=== PATIENT | male | born 1990 | race Caucasian/White ===

== ENCOUNTER 2017-02-04 16:19 | Emergency (ER) | payer SELFPAY ==
[2017-02-04] MEDS ORDERED: PENICILLIN V POTASSIUM 250 MG TAB PO ONE (16:34)
--- NOTE | 2017-02-04 16:42 | Emergency Department Record ---
History of Present Illness - General Chief complaint: Dental Stated complaint: TOOTH PAIN Time Seen by Provider: 02/04/17 16:20 Source: Patient Mode of Arrival: Ambulatory Limitations: No limitations - History of Present Illness Initial comments: 26 yo male presents with right lower jaw pain over the last one day. He has some swelling and feeling of pus inside the area. He has some chronic decay. No fever. No facial swelling but he has some pain in the face. MD complaint: Tooth pain Onset/Timin -: Days(s) Location: Tooth # Severity: Severe Severity scale (1-10): 10 Quality: Aching Consistency: Constant Improves with: None Worsens with: None Context- Dental: History of dental caries Context- Ear: Other (Recent fall with broken arm) Associated Symptoms: Toothache - Related Data Home Medications Medication Instructions Recorded Confirmed Last Taken Hydrocodone/Acetaminophen [Dow 1 each PO ASDIR 02/04/17 02/04/17 Unknown 5-325 Tablet] Previous Rx's Medication Instructions Recorded Hydrocodone/Acetaminophen [Dow 1 each PO Q6H PRN #15 tablet 02/04/17 5-325 Tablet] Penicillin V Potassium 500 mg PO Q6H #40 tab 02/04/17 Allergies Allergy/AdvReac Type Severity Reaction Status Date / Time No Known Drug Allergies Allergy Verified 02/04/17 16:27 Travel Screening - Travel/Exposure Within Last 30 Days Have you traveled within the last 30 days?: No Review of Systems Constitutional: Denies: Chills, Fever, Malaise, Weakness Eyes: Denies: Eye discharge, Eye pain, Photophobia, Vision change ENT: Reports: As per HPI, Dental pain. Denies: Congestion, Throat pain Respiratory: Denies: Cough, Dyspnea Cardiovascular: Denies: Chest pain, Palpitations, Syncope Endocrine: Denies: Fatigue Gastrointestinal: Denies: Abdominal pain, Diarrhea, Nausea, Vomiting Genitourinary: Denies: Dysuria, Frequency, Hematuria Musculoskeletal: Reports: As per HPI (recent fall with broken arm), Arthralgia. Denies: Back pain, Joint swelling, Myalgia, Neck pain Skin: Denies: Bruising, Change in color Neurological: Denies: Headache Psychiatric: Denies: Anxiety Hematological/Lymphatic: Denies: Blood Clots, Easy bleeding, Easy bruising, Swollen glands Past Medical History - SOCIAL HISTORY Smoking Status: Current every day smoker Alcohol Use: None Drug Use: None - RESPIRATORY Hx Respiratory Disorders: No - CARDIOVASCULAR Hx Cardio Disorders: No - NEURO Hx Neuro Disorders: No - GI Hx GI Disorders: No - Hx Genitourinary Disorders: No - ENDOCRINE Hx Endocrine Disorders: No - MUSCULOSKELETAL Hx Musculoskeletal Disorders: No - PSYCH Hx Psych Problems: No - HEMATOLOGY/ONCOLOGY Hx Hematology/Oncology Disorders: No Family Medical History Any Significant Family History?: No Physical Exam - General General Appearance: Alert, Oriented x3, Cooperative, No acute distress Limitations: No limitations - Head Head exam: Atraumatic, Normocephalic, Normal inspection - Eye Eye exam: Normal appearance. negative: Conjunctival injection, Periorbital swelling, Periorbital tenderness - ENT ENT exam: Mucous membranes moist. negative: Normal orophraynx Ear exam: Normal external inspection Nasal Exam: Normal inspection Mouth exam: Normal external inspection Teeth exam: Dental caries, Dental tenderness # (29), Fractured tooth # (29), Gingival enlargement (29), Other (swelling around #29 with fluctuance). negative: Normal inspection Throat exam: Normal inspection. negative: Tonsillar erythema, Tonsillar exudate - Neck Neck exam: Normal inspection, Full ROM, Other (supple soft, non tender without swelling). negative: Lymphadenopathy, Tenderness, Thyromegaly - Respiratory Respiratory exam: Normal lung sounds bilaterally. negative: Respiratory distress - Cardiovascular Cardiovascular Exam: Regular rate, Normal rhythm, Normal heart sounds - GI/Abdominal GI/Abdominal exam: Soft - Rectal Rectal exam: Deferred - exam: Deferred - Extremities Extremities exam: Normal inspection, Full ROM, Normal capillary refill. negative: Tenderness - Back Back exam: Reports: Normal inspection, Full ROM. Denies: Muscle spasm, Rash noted, Tenderness - Neurological Neurological exam: Alert, Normal gait, Oriented X3 - Psychiatric Psychiatric exam: Normal affect, Normal mood. negative: Agitated, Anxious - Skin Skin exam: Dry, Intact, Normal color, Warm Course Vital Signs 02/04/17 16:24 Temperature 99.3 F Pulse Rate 61 Respiratory 20 Rate Blood Pressure 120/66 Pulse Ox 98 - Reevaluation(s) Reevaluation #1: The patient has a visible small abscess at 29-30 area I discussed the options of antibiotics alone or I and D He agreed to I and D Lidocaine with Epi 1% 2cc local provided 11 Blade used to make a 3mm incision Pus drained. This was expressed until clear of pus The patient got significant instant relief Bleeding controlled Pen Vee K Given in the ED 02/04/17 16:39 Disposition Disposition: Discharge Clinical Impression: Dental abscess Disposition: Home, Self-Care Condition: (1) Good Instructions: Dental Abscess (ED) Additional Instructions: Return to the ED if you have fever, uncontrolled pain, swelling or any new concerns Call the dental referral numbers provided Take the Penicillin every 6 hours as directed Prescriptions: Hydrocodone/Acetaminophen [Dow 5-325 Tablet] 1 each PO Q6H PRN #15 tablet PRN Reason: Toothache Penicillin V Potassium 500 mg PO Q6H #40 tab Forms: Patient Portal Access Time of Disposition: 16:42
== END 2017-02-04 16:53 | disposition home or self-care (01) ==
LOC: ER 16:19
DX: K04.7 Periapical abscess without sinus (principal)
CPT/HCPCS: 41800; 99283